=== PATIENT | male | born 1960 | race Caucasian/White ===

== ENCOUNTER 2022-07-11 09:56 | Emergency (ER) | payer OTHER ==
[~2022-07-11] VITALS: Ht 185.4 cm; Wt 74.8 kg
--- NOTE | 2022-07-11 10:14 | NUR ---
DR DOMINIQUE AT BEDSIDE FOR EVAL
--- NOTE | 2022-07-11 10:22 | NUR ---
XRAY AT BEDSIDE.
[2022-07-11] MEDS ORDERED: IBUP-1953 PO (10:34)
[2022-07-11 10:56] VITALS: BP 134/86
--- NOTE | 2022-07-11 10:56 | NUR ---
Patient discharged to home in stable condition. Written and verbal after care instructions given. Patient verbalizes understanding of instruction.
== END 2022-07-11 10:57 | disposition home or self-care (01) ==
LOC: ER 10:01
DX: M10.9 Gout, unspecified (principal); I10 Essential (primary) hypertension; I25.2 Old myocardial infarction; Z86.73 Personal history of transient ischemic attack (TIA), and cerebral infarction without residual deficits
CPT/HCPCS: 73660-TC

== ENCOUNTER 2022-10-11 04:20 | Emergency (ER) | payer OTHER ==
[~2022-10-11] VITALS: Ht 182.9 cm; Wt 79.4 kg
[~2022-10-11 04:20] MED LIST: IBUP-1953 PO
[2022-10-11] MEDS ORDERED: HYDROCODONE/APAP 5/325MG TABLET PO ONE (05:00)
[2022-10-11] MEDS ORDERED: HYDR-3972 PO (05:03)
[2022-10-11] MEDS ORDERED: HYDROCODONE/APAP 5/325MG TABLET ONE (05:06)
--- NOTE | 2022-10-11 05:29 | NUR ---
[facility] CALLED TO TAKE HOME ETA 2 HOURS
--- NOTE | 2022-10-11 05:56 | NUR ---
[facility] [phone]
--- NOTE | 2022-10-11 08:23 | NUR ---
TRANSPORTATION ARRIVED, REPORT RADHA TO TRANSPORTED BACK HOME IN STABLE CONDITION
[2022-10-11 08:34] VITALS: BP 138/72
== END 2022-10-11 08:34 | disposition home or self-care (01) ==
LOC: ER 04:21
DX: S42.202A Unspecified fracture of upper end of left humerus, initial encounter for closed fracture (principal); I25.2 Old myocardial infarction; I10 Essential (primary) hypertension; Z86.73 Personal history of transient ischemic attack (TIA), and cerebral infarction without residual deficits; W19.XXXA Unspecified fall, initial encounter; Y93.89 Activity, other specified; Y92.89 Other specified places as the place of occurrence of the external cause; Y99.8 Other external cause status
CPT/HCPCS: 73030-TC